=== PATIENT | male | born 1965 | race Caucasian/White ===

== ENCOUNTER → 2018-10-16 | Day surgery (SDC) | payer OTHER ==
[~2018-10-16] VITALS: Ht 175.3 cm; Wt 71.2 kg
[2018-10-16 07:44] VITALS: BP 141/66
[2018-10-16 11:21] VITALS: BP 156/77
== END | disposition home or self-care (01) ==
LOC: DS 06:48 → GI 10:00 → OR 11:30 → GI 11:30
DX: K50.90 Crohn's disease, unspecified, without complications (principal); K52.9 Noninfective gastroenteritis and colitis, unspecified; K63.89 Other specified diseases of intestine; R63.4 Abnormal weight loss; F41.9 Anxiety disorder, unspecified; F12.90 Cannabis use, unspecified, uncomplicated; Z79.899 Other long term (current) drug therapy; Z98.890 Other specified postprocedural states
CPT/HCPCS: 45378; J1200; J1610; J2250; J2310; J3010; J3490